=== PATIENT | male | born 1970 | race Caucasian/White ===

== ENCOUNTER → 2018-07-15 | Day surgery (SDC) | payer OTHER ==
[2018-07-14 15:27] VITALS: BMI 32.3
[~2018-07-15] MED LIST: ACETAMINOPHEN 1000 MG/100 ML VIAL (NON FORMULARY) IVPB ONE; ELECTROLYTE-148 SOLN 1,000 ML IV SCH; GENTAMICIN SO4 80 MG/2 ML VIAL IVPB ONE; GENTAMICIN SO4 80 MG/2 ML VIAL ONE; LACTATED RINGERS SOLUTION 1,000 ML IV SCH; LIDOCAINE HCL/PF 2% SDV 5ML VIAL ONE; MIDAZOLAM HCL 2 MG/2 ML SINGLE DOSE VIAL ONE; ONDANSETRON 4 MG/2 ML VIAL IVPUSH PRN; PROPOFOL 20 ML ONE; SUCCINYLCHOLINE CHLORIDE 200 MG/10 ML VIAL ONE; ceFAZolin SODIUM 1 GM VIAL IVPB ONE; ceFAZolin SODIUM 1 GM VIAL ONE; oxyCODONE HCL 5 MG TABLET PO PRN
--- NOTE | 2018-07-15 09:57 | OP ---
Operative Note - Note: Operative Date: 07/15/18 Pre-Operative Diagnosis: urethral stricture Operation: cysto/urethral dilation Post-Operative Diagnosis: Same as Pre-op Surgeon: Brenton Prado Anesthesia: General Estimated Blood Loss (mls): 5 Operative Report Dictated: Yes
--- NOTE | 2018-07-15 11:10 | OP ---
DATE OF OPERATION: 07/15/2018 PREOPERATIVE DIAGNOSIS: Urethral stricture. POSTOPERATIVE DIAGNOSIS: Urethral stricture. PROCEDURE: Cystoscopy dilation of stricture. SURGEON: Arian Goins MD INDICATION: The patient is a 48-year-old male with obstructive and urinary symptoms, noted to have urethral stricture on office cystoscopy. He is taken to the OR for a cystoscopy dilation. Risks, benefits, and alternatives discussed. DESCRIPTION OF PROCEDURE: After informed consent obtained, patient was taken to the OR and placed supine on the table. After cardiac monitoring administered and general anesthesia established, he was prepped and draped in dorsal lithotomy position. A 22-sheath cystoscope was inserted into urethra, after dilation of a narrow meatus with a 22-[place]ux[place]bourgish sound. The scope was advanced to the bulbourethral where a tight stricture was noted. A guide wire was advanced through this area, and over the guide wire, the stricture dilated to 18-[place]ish. The scope was then reinserted. Area of stricture was noted, now having been dilated, and the bladder was visualized. No tumors or stones noted in the bladder. The cystoscope was then removed and an 18-[place] Councill-tip catheter was then placed over the remaining wire using a Seldinger technique and pink-tinged urine retrieved. The patient was then awoken from anesthesia and transferred to the recovery room in stable condition. There were no complications. Estimated blood loss was minimal. ARIAN GOINS M.D. [id number]
[2018-07-15 11:18] VITALS: TEMP 97.8
[2018-07-15 15:01] VITALS: BP 117/54; PULSE 54
== END | disposition home or self-care (01) ==
LOC: JASU-SURG 07:31
PROVIDERS: ATTEND Urology
PROC: 0T7D8ZZ Dilation of Urethra, Via Natural or Artificial Opening Endoscopic (ICD-10-PCS; principal; 2018-07-15 09:00)
DX: N35.919 Unspecified urethral stricture, male, unspecified site (principal)
CPT/HCPCS: 94760; J0131